=== PATIENT | male | born 1995 | race African-American/Black ===

== ENCOUNTER 2017-03-31 10:18 | Emergency (ER) | payer OTHER ==
[2017-03-31 10:24] VITALS: BP 120/75; PULSE 95; TEMP 99; BMI 33.2
[2017-03-31] MEDS ORDERED: ALBUTEROL SO4 2.5/IPRATROPIUM 0.5 INH SOL 3 ML VIAL.NEB. NEB ONE ×4 (11:42→12:17)
[2017-03-31] MEDS ORDERED: predniSONE 20 MG TABLET (UD) PO ONE (11:42)
[2017-03-31] MEDS ORDERED: predniSONE 20 MG TABLET (UD) ONE ×2 (11:42→11:44)
--- NOTE | 2017-03-31 11:52 | PDOC ---
History of Present Illness - General Chief Complaint: Asthma Stated Complaint: SOB Time Seen by Provider: 03/31/17 11:37 History Source: Patient Exam Limitations: No Limitations - History of Present Illness Initial Comments: 03/31/17 11:50 Patient came for evaluation of worsened symptoms of asthma. States onset was last week with a cold. Has been using his asthma medications including Flovent and albuterol with out completely resolved. States symptoms have worsened but is without fever. No phlegm production. Is a daily marijuana smoker Timing/Duration: reports: constant, getting worse Severity: reports: mild, moderate Modifying Factors: improves with: albuterol inhaler, albuterol nebulizer, coughing Associated Symptoms: reports: denies symptoms Past History - Travel Traveled outside of the country in the last 30 days: No Close contact w/someone who was outside of country & ill: No - Past Medical History Allergies/Adverse Reactions: Allergies Allergy/AdvReac Type Severity Reaction Status Date / Time dust Allergy Uncoded 03/31/17 10:26 seasonal Allergy Uncoded 03/31/17 10:26 Home Medications: Ambulatory Orders Albuterol 0.083% Nebulizer Nelsy [Ventolin 0.083% Nebulizer Soln -] 1 neb NEB Q4H PRN #30 vial 03/31/17 predniSONE [Deltasone -] 20 mg PO BID #8 tablet 03/31/17 Asthma: Yes COPD: No Psychiatric Problems: Yes (depression and anxiety) - Suicide/Smoking/Psychosocial Hx Smoking History: Current every day smoker Have you smoked in the past 12 months: No Number of Cigarettes Smoked Daily: 5 Information on smoking cessation initiated: No Drug/Substance Use Hx: No Substance Use Type: Marijuana Review of Systems - Review of Systems Able to Perform ROS?: Yes Is the patient limited [place]ian proficient: Yes Constitutional: Yes: Symptoms Reported, See HPI, Malaise. No: Chills, Fever HEENTM: Yes: See HPI, Nose Congestion. No: Symptoms Reported, Throat Pain Respiratory: Yes: Symptoms reported, See HPI, Cough, Shortness of Breath, Wheezing : No: Symptoms Reported All Other Systems: Reviewed and Negative *Physical Exam - Vital Signs Last Vital Signs Temp Pulse Resp BP Pulse Ox 99 F 95 H 16 120/75 96 03/31/17 10:21 03/31/17 10:21 03/31/17 10:21 03/31/17 10:21 03/31/17 10:21 - Physical Exam General Appearance: Yes: Nourished, Appropriately Dressed, Mild Distress HEENT: positive: ANDREA, Normal ENT Inspection, TMs Normal, Pharynx Normal Neck: positive: Supple. negative: Lymphadenopathy (R), Lymphadenopathy (L) Respiratory/Chest: positive: Normal Breath Sounds, Wheezing (tight inspiratory and expiratory breath sounds bilaterally). negative: Lungs Clear Cardiovascular: positive: Regular Rhythm Gastrointestinal/Abdominal: positive: Soft. negative: Tender Extremity: positive: Normal Capillary Refill, Normal Inspection, Normal Range of Motion Integumentary: positive: Dry, Warm, Pale Neurologic: positive: travel accommodations rater II-XII NML intact, Fully Oriented, Alert, Normal Mood/ Affect, Normal Response, Motor Strength 06/14 Progress Note - Progress Note Progress Note: Asthma exacerbation,. We will treat with steroids and DuoNeb's Medical Decision Making - Medical Decision Making 03/31/17 12:30 Much improved after 60 mg of prednisone by mouth, and 2 DuoNeb nebulizing treatments. Patient states feels better, less tight, and ready for discharge. *DC/Admit/Observation/Transfer Diagnosis at time of Disposition: Asthma with exacerbation Qualifiers: Asthma severity: moderate Asthma persistence: unspecified Qualified Code(s): J45.901 - Unspecified asthma with (acute) exacerbation - Discharge Dispostion Disposition: HOME Condition at time of disposition: Stable Admit: No - Referrals - Patient Instructions Printed Discharge Instructions: Asthma -- Adult Additional Instructions: Rest, drink lots of fluids: Teas, water, soups, Pedialyte Saltwater gargles Steamy showers/seem to face break up mucus Avoid contact with others until fevers and cough resolved Lots of handwashing and good hygiene Continue [id number] medications for symptomatic relief Tylenol or Motrin for fever and pain Continue albuterol nebulizers every 4-6 hours for the next 2 days then as needed for continued cough Prednisone as directed until completed Followup with private physician in one to 2 days Return to emergency department / pediatric hospital for worsened symptoms, fevers, dehydration - Post Discharge Activity Forms/Work/School Notes: Back to Work
== END 2017-03-31 12:30 | disposition home or self-care (01) ==
LOC: JERFT 10:18
PROC: 3E0F7GC Introduction of Other Therapeutic Substance into Respiratory Tract, Via Natural or Artificial Opening (ICD-10-PCS; principal; 2017-03-31)
PROC: 3E0F7GC Introduction of Other Therapeutic Substance into Respiratory Tract, Via Natural or Artificial Opening (ICD-10-PCS; 2017-03-31)
DX: J45.901 Unspecified asthma with (acute) exacerbation (principal); F41.8 Other specified anxiety disorders
CPT/HCPCS: 94640; 99281-25